=== PATIENT | female | born 1970 | race Caucasian/White ===

== ENCOUNTER 2021-10-19 14:10 | Emergency (ER) | payer OTHER, SELFPAY ==
--- NOTE | 2021-10-19 14:16 | ED.GENADULT ---
HPI - General Adult General Chief complaint: Wound/Laceration Stated complaint: R LEG LACERATION Time Seen by Provider: 10/19/21 14:16 Source: patient Mode of arrival: ambulatory Limitations: no limitations History of Present Illness HPI narrative: 50-year-old female patient presents to [facility] with complaints of an abrasion to the right upper leg. Patient states that she was cut with a josefa nail today. Patient does not remember when her last tetanus shot was so therefore she is coming in today requesting a tetanus shot. Related Data Home Medications Medication Instructions Recorded Confirmed [email or web address] 10/19/21 Allergies Allergy/AdvReac Type Severity Reaction Status Date / Time No Known Allergies Allergy Mild Verified 10/19/21 14:23 Review of Systems Review of Systems: CONSTITUTIONAL: Denies fever, chills, or sweats. EYES: Denies visual changes, redness, or discharge. ENT: Denies rhinorrhea, congestion, sore throat, or otalgia. CARDIOVASCULAR: Denies chest pain, palpitations, or edema. RESPIRATORY: Denies cough or dyspnea. GASTROINTESTINAL: Denies abdominal pain, nausea, vomiting, or diarrhea. GENITOURINARY: Denies dysuria or hematuria. SKIN: Denies rash or itching. Positive abrasion to right upper thigh MUSCULOSKELETAL: Denies back pain, joint pain, or myalgia. NEUROLOGIC: Denies headache, numbness, or weakness. PSYCHIATRIC: Denies anxiety or depression. FORMERLY [facility], [facility]–1983 Past Medical History Medical History (Updated 10/19/21 @ 14:30 by ROBYN Rock) No significant past medical history Exam Narrative: GENERAL: Well-appearing, well-nourished, and in no acute distress. HEAD: Normocephalic, atraumatic. EYES: PERRLA and EOMI. ENT: Nares clear, no rhinorrhea or epistaxis. Mucous membranes moist. NECK: Supple. No lymphadenopathy CHEST: Clear to auscultation. No respiratory distress. HEART: Regular rate and rhythm. No murmur heard. Normal peripheral pulses. ABDOMEN: Soft, nontender, nondistended, normal active bowel sounds. EXTREMITIES: Normal range of motion. No edema. SKIN: Warm, dry, no rash. Patient has approximately 3-1/2 cm abrasion noted to the right upper thigh. No active bleeding there is no open or gaping wounds and no discharge present. NEURO: No focal deficits. Alert and oriented x3. Course Course Level of Care: Express Care Visit Vital Signs Vital signs: Vital Signs Temperature 36.2 C L 10/19/21 14:21 Pulse Rate 87 10/19/21 14:21 Respiratory Rate 16 10/19/21 14:21 Blood Pressure 103/59 L 10/19/21 14:21 Pulse Oximetry 99 10/19/21 14:21 Temperature 36.2 C L 10/19/21 14:21 Pulse Rate 87 10/19/21 14:21 Respiratory Rate 16 10/19/21 14:21 Blood Pressure 103/59 L 10/19/21 14:21 Pulse Oximetry 99 10/19/21 14:21 Vital signs reviewed Medical Decision Making Differential Diagnosis Differential Diagnosis: Differential diagnosis: Simple, intermediate, or complex laceration. Abscess, cellulitis, hidradenitis, laceration, puncture wound. Great care for patient is to clean the area and put antibiotic ointment and a Band-Aid to the area. Update patient's tetanus shot today as per requested. Vital Signs Vital Signs: Vital Signs Temperature 36.2 C L 10/19/21 14:21 Pulse Rate 87 10/19/21 14:21 Respiratory Rate 16 10/19/21 14:21 Blood Pressure 103/59 L 10/19/21 14:21 Pulse Oximetry 99 10/19/21 14:21 Temperature 36.2 C L 10/19/21 14:21 Pulse Rate 87 10/19/21 14:21 Respiratory Rate 16 10/19/21 14:21 Blood Pressure 103/59 L 10/19/21 14:21 Pulse Oximetry 99 10/19/21 14:21 Critical Care Time Critical Care Time Critical Care Time: No Discharge Plan Discharge Clinical Impression: Abrasion Patient Disposition: Home, Self-Care Condition: Stable Instructions: Antibiotic Form, Abrasion (ED) Additional Instructions: Clean the area with soap and water May apply antibiotic ointment with a Band-Aid to the area to decr
[2021-10-19 14:21] VITALS: BP 103/59; PULSE 87; RESP 16; TEMP 36.2; O2SAT 99
[2021-10-19] MEDS: TETANUS,DIPHTHERIA,AC PERTUSSIS ADULT (0.5 ML) BOOSTRIX IM (14:35)
== END 2021-10-19 14:48 | disposition home or self-care (01) ==
PROVIDERS: Emergency Provider Nurse Practitioner Family
DX: S70.311A Abrasion, right thigh, initial encounter (principal); W45.0XXA Nail entering through skin, initial encounter; Z23 Encounter for immunization
CPT/HCPCS: 90471; 90715; 99212; G0463